=== PATIENT | male | born 1970 | race Caucasian/White ===

== ENCOUNTER → 2018-08-26 | Outpatient (CLI) | payer BC ==
--- NOTE | 2018-08-27 11:35 | PCVCIMAG ---
APPROVED REPORT Study performed: 08/26/2018 16:00:43 Exam: Stress Echocardiogram Indication: Elevated calcium score Patient Location: Echo lab Stress Nurse: Melinda Woodruff RN Status: routine Ht: 5 ft 11 in HR: 69 bpm BP: 122/80 mmHg Rhythm: NSR Medical History Exercise History: Physically active Procedure The patient underwent an Exercise Stress Test using the Margarito Protocol. Blood pressure, heart rate, and EKG were monitored. An Echocardiogram was performed by respiratory care technician in four stages in quad fashion. At peak stress, four selected images were obtained and placed side by side with resting images for comparison. Stress Test Details Stress Test: Exercise stress testing was performed using a Margarito protocol. HR Resting HR: 69 bpmMax Heart Rate (APMHR): 175 bpm Max HR Achieved: 166 bpmTarget HR (85% APMHR): 148 bpm % of APMHR: 94 Recovery HR: 93 bpm HR response to stress: Normal HR response to stress BP Resting BP: 122/80 mmHg Max BP: 162/78 mmHg Recovery BP: 140/78 mmHg BP response to stress: Normal blood pressure response to stress. ECG Resting ECG: Sinus Rhythm Stress ECG: Sinus Rhythm, Sinus Tachycardia Recovery ECG: Sinus Rhythm Clinical Reason for Termination: Maximal effort Exercise duration: 13 min 01 sec Highest Stage Achieved: Stage 5: 5.0 mph at 18% grade. Exercise capacity: 17.20 METs Overall Exercise Capacity for Age: Excellent Stress ECG Conclusion 1. Subjectively negative for ischemia 2. Electrocardiographically negative for ischemia 3. Satisfactory functional capacity Pre-Stress Echo The resting Echocardiogram showed normal left ventricular contractility with an estimated Ejection Fraction of about 55-60%. Normal wall motion in all segments on baseline images. Post-Stress Echo The stress Echocardiogram showed normal left ventricular contractility with an estimated Ejection Fraction of about 60-65%. Normal augmentation of wall motion in all segments on post stress images. Clinical No clinical or ECG evidence for ischemia. Conclusion Clinical Response: Non-ischemic Exercise Capacity: Superior Stress ECG Response: Non-ischemic Stress Echo Images: Non-ischemic The left ventricle is normal in size and wall thickness in both the rest and stress images. 1. Low Risk Study Other Information Study Quality: Good <Conclusion> The left ventricle is normal in size and wall thickness in both the rest and stress images. 1. Low Risk Study
== END | disposition home or self-care (01) ==
LOC: PCVCIMAG 15:50
PROVIDERS: ATTEND Internal Medicine
DX: R93.1 Abnormal findings on diagnostic imaging of heart and coronary circulation (principal)
CPT/HCPCS: 93325; 93351